=== PATIENT | female | born 1975 | race African-American/Black ===

== ENCOUNTER 2022-05-15 09:53 | Day surgery (SDC) | payer OTHER ==
[2022-05-12 11:23] VITALS: BMI 25.1
[2022-05-15 11:20] VITALS: RESP 18; TEMP 98.2
[2022-05-15 11:40] VITALS: BP 117/80; PULSE 64
== END 2022-05-15 12:10 | disposition home or self-care (01) ==
LOC: FASU-ENDO 09:53
PROVIDERS: ATTEND Internal Medicine Gastroenterology
PROC: 0DJD8ZZ Inspection of Lower Intestinal Tract, Via Natural or Artificial Opening Endoscopic (ICD-10-PCS; principal; 2022-05-15 10:55)
DX: Z12.11 Encounter for screening for malignant neoplasm of colon (principal); K64.1 Second degree hemorrhoids; K64.8 Other hemorrhoids
CPT/HCPCS: 81025